=== PATIENT | male | born 1955 | race African-American/Black ===

== ENCOUNTER 2021-07-23 04:52 | Emergency (ER) | payer OTHER, BC ==
[~2021-07-23] VITALS: Ht 188 cm; Wt 129.3 kg
[2021-07-23] MEDS ORDERED: HYDRALAZINE 2525 MG PO (05:04)
[2021-07-23 05:56] LABS: CALCIUM 8.2 mg/dL (8.5-10.1); CREATININE 1.1 mg/dL (0.6-1.3); POTASSIUM 3.6 mmol/L (3.5-5.1)
[2021-07-23 06:06] LABS: ALBUMIN 2.9 g/dL (3.4-5.0); TOTAL BILIRUBIN 0.5 mg/dL (<0.1-1.0); TOTAL PROTEIN 6.9 g/dL (6.4-8.2)
[2021-07-23 06:19] LABS: ABSOLUTE EOSINOPHILS 0.1 thou/uL (0.0-0.7); ABSOLUTE LYMPHOCYTES 1.9 thou/uL (0.8-5.3); ABSOLUTE MONOCYTES 0.7 thou/uL (0.0-1.2); BASOPHILS 0.3 %; EOSINOPHILS 1.7 %; HEMATOCRIT 38.8 % (42.0-52.0); HEMOGLOBIN 12.5 gm/dL (14.0-18.0); LYMPHOCYTES 27.8 %; MCH 25.4 pg (26.0-34.0); MCHC 32.3 g/dL (28.0-37.0); MCV 78.7 fL (80.0-100.0); MPV 8.3 fl. (7.2-11.1); NUCLEATED RBCS 0 /100WBC; PLATELET COUNT* 221 thou/uL (150-400); POLYS 59.2 %; RBC 4.93 mil/uL (4.50-6.00); RDW-CV 15.2 % (10.5-14.5); WBC 6.8 thou/uL (4.0-11.0)
[2021-07-23 06:40] LABS: INFLUENZA A ANTIGEN Negative (Negative); INFLUENZA B ANTIGEN Negative (Negative)
[2021-07-23] MEDS ORDERED: HYDROCODONE-CH115 ML PO (06:52)
[2021-07-23] MEDS ORDERED: NASONEX17 GM NASAL (06:52)
[2021-07-23 07:06] VITALS: BP 138/81
--- NOTE | 2021-07-24 10:36 | EKG ---
[place] [address] ELECTROCARDIOGRAM REPORT Name: GRIS KINGSTON Room: [facility]#: [id number] Admission: 07/23/21 Attend Phys: Discharge: 07/23/21 Date of : 59 Date of Service: 07/23/21 0458 Report #: [id number] THIS REPORT FOR: //name// [facility] ED Test Date: 2021-07-23 Test Time: 04:58:53 Pat Name: GRIS KINGSTON Department: Room: Gender: Clinical Staff Educator: DT : 1955 Requested By: Any Read Order Number: [id number] MD: Jose G Daniels Measurements Intervals [place] Rate: 58 P: 73 [place]: 211 QRS: -3 QRSD: 107 T: -6 QT: 406 QTc: 399 Interpretive Statements Sinus rhythm Low voltage, precordial leads Borderline T abnormalities, anterior leads No previous ECG available for comparison Electronically Signed On 07-24-2021 10:36:35 CDT by Jose G Daniels [email or web address] <ELECTRONICALLY SIGNED> By: Jose G Daniels MD, [facility] 07/24/21 1036 [id number] Jose G Daniels MD, [facility] /EPI
== END 2021-07-23 07:07 | disposition home or self-care (01) ==
LOC: M.ERS 04:52
PROVIDERS: Emergency Medicine
DX: J06.9 Acute upper respiratory infection, unspecified (principal); Z20.822 Contact with and (suspected) exposure to COVID-19; Z88.2 Allergy status to sulfonamides